=== PATIENT | female | born 1995 | race Hispanic/Latino ===

== ENCOUNTER 2018-01-13 21:40 | Emergency (ER) | payer SELFPAY ==
[2018-01-14] MEDS ORDERED: ULTRAM PO ONE (01:31)
[2018-01-14] MEDS ORDERED: TRIMOX PO ONE (01:31)
--- NOTE | 2018-01-14 01:36 | Emergency Department Report ---
ED ENT HPI - General Chief complaint: Dental/Oral Stated complaint: ABSCESS/MOUTH Time Seen by Provider: 01/14/18 01:23 Source: patient Mode of arrival: Ambulatory Limitations: No Limitations - History of Present Illness Initial comments: Patient presents for infected dental caries and dental pain 5/10 medial incisors there is mild gum swelling no facial swelling no fever no chills no throat or ear pain this acute exacerbation of a chronic problem for 3 years patient advises he does not have a dentist ? Referral to dental. MD complaint: tooth pain Onset/Timin -: days(s), unknown (hx same for past 2 years ) Location: tooth # (7,8,9) Severity: moderate Severity scale (0 -10): 3 Quality: aching, sharp Consistency: intermittent Improves with: none Worsens with: other (hot or cold stimuli ) Context- Dental: history of dental caries, poor dental care Associated Symptoms: gum swelling, toothache - Related Data Previous Rx's Medication Instructions Recorded Last Taken Type Amoxicillin [Trimox CAP] 500 mg PO ONCE #30 capsule 01/14/18 Unknown Rx Chlorhexidine Mouthwash [Peridex] 15 ml MM BID #1 bottle 01/14/18 Unknown Rx Ibuprofen 800 mg PO TID PRN #30 tablet 01/14/18 Unknown Rx Allergies Allergy/AdvReac Type Severity Reaction Status Date / Time No Known Allergies Allergy Verified 01/13/18 21:53 ED Dental HPI - General Chief complaint: Dental/Oral Stated complaint: ABSCESS/MOUTH Time Seen by Provider: 01/14/18 01:23 Source: patient Mode of arrival: Ambulatory Limitations: No Limitations - Related Data Previous Rx's Medication Instructions Recorded Last Taken Type Amoxicillin [Trimox CAP] 500 mg PO ONCE #30 capsule 01/14/18 Unknown Rx Chlorhexidine Mouthwash [Peridex] 15 ml MM BID #1 bottle 01/14/18 Unknown Rx Ibuprofen 800 mg PO TID PRN #30 tablet 01/14/18 Unknown Rx Allergies Allergy/AdvReac Type Severity Reaction Status Date / Time No Known Allergies Allergy Verified 01/13/18 21:53 ED Review of Systems ROS: Stated complaint: ABSCESS/MOUTH Other details as noted in HPI Constitutional: denies: chills, fever Eyes: denies: eye pain, eye discharge, vision change ENT: dental pain. denies: ear pain, throat pain, hearing loss, epistaxis, congestion Respiratory: denies: cough, shortness of breath, wheezing Cardiovascular: denies: chest pain, palpitations Endocrine: no symptoms reported Gastrointestinal: denies: abdominal pain, nausea, diarrhea Genitourinary: denies: urgency, dysuria, discharge Musculoskeletal: denies: back pain, joint swelling, arthralgia Skin: denies: rash, lesions Neurological: denies: headache, weakness, paresthesias Psychiatric: denies: anxiety, depression Hematological/Lymphatic: denies: easy bleeding, easy bruising ED Past Medical Hx - Past Medical History Hx Hypertension: Yes - Surgical History Past Surgical History?: Yes Additional Surgical History: tonsilectomy - Social History Smoking Status: Never Smoker Substance Use Type: None - Medications Home Medications: Home Medications Medication Instructions Recorded Confirmed Last Taken Type Amoxicillin [Trimox CAP] 500 mg PO ONCE #30 capsule 01/14/18 Unknown Rx Chlorhexidine Mouthwash [Peridex] 15 ml MM BID #1 bottle 01/14/18 Unknown Rx Ibuprofen 800 mg PO TID PRN #30 tablet 01/14/18 Unknown Rx ED Physical Exam - General Limitations: No Limitations General appearance: alert, in no apparent distress - Head Head exam: Present: atraumatic, normocephalic - Eye Eye exam: Present: normal appearance - ENT ENT exam: Present: normal orophraynx, mucous membranes moist, TM's normal bilaterally, normal external ear exam - Expanded ENT Exam Expanded Teeth exam: Present: dental caries, dental tenderness # (7,8,9), other ( multiple dental carries throughout ) Throat exam: Positive: normal inspection - Neck Neck exam: Present: normal inspection. Absent: tenderness, meningismus, full ROM, lymphadenopathy, thyromegaly - Respiratory Respiratory exam: Present: normal lung sounds bilaterally. Absent: respiratory distress, wheezes, rhonchi, chest wall tenderness - Cardiovascular Cardiovascular Exam: Present: regular rate, normal rhythm, normal heart sounds. Absent: systolic murmur, diastolic murmur, rubs, gallop - GI/Abdominal GI/Abdominal exam: Present: soft, normal bowel sounds. Absent: rebound, bruit, hernia - Rectal Rectal exam: Present: deferred - External exam: Present: normal external exam - Extremities Exam Extremities exam: Present: normal inspection - Back Exam Back exam: Present: normal inspection, full ROM. Absent: tenderness, CVA tenderness (R), CVA tenderness (L), muscle spasm, paraspinal tenderness, vertebral tenderness, rash noted - Neurological Exam Neurological exam: Present: alert, oriented X3, CN II-XII intact, normal gait, motor sensory deficit. Absent: abnormal gait - Psychiatric Psychiatric exam: Present: normal affect, normal mood - Skin Skin exam: Present: warm, dry, intact, normal color. Absent: rash ED Course Vital Signs 01/13/18 21:53 Temperature 98.9 F Pulse Rate 98 H Respiratory 16 Rate Blood Pressure 154/81 O2 Sat by Pulse 100 Oximetry ED Medical Decision Making - Medical Decision Making These are infected dental carry with no focal abscess plan amoxicillin ibuprofen. Peridex Follow with [facility] dental tomorrow patient verbalizes agreement and understanding same patient for DC'd to home in stable condition at this time patient is currently tolerating by mouth intake without issue there is no ear or throat pain patient is tolerating by mouth intake Critical care attestation.: If time is entered above; I have spent that time in minutes in the direct care of this critically ill patient, excluding procedure time. ED Disposition Clinical Impression: Infected dental carries Disposition: DC-01 TO HOME OR SELFCARE Is pt being admited?: No Does the pt Need Aspirin: No Condition: Good Instructions: Dental Caries (ED) Prescriptions: Amoxicillin [Trimox CAP] 500 mg PO ONCE #30 capsule Chlorhexidine Mouthwash [Peridex] 15 ml MM BID #1 bottle Ibuprofen 800 mg PO TID PRN #30 tablet PRN Reason: pain Referrals: PRIMARY CARE, [Primary Care Provider] - 3-5 Days Forms: Work/School Release Form(ED) Time of Disposition: 01:41
[2018-01-14 02:11] VITALS: BP 139/85
== END 2018-01-14 02:10 | disposition home or self-care (01) ==
LOC: ED 21:40
DX: K02.9 Dental caries, unspecified (principal); I10 Essential (primary) hypertension; Z90.89 Acquired absence of other organs
CPT/HCPCS: 99282

== ENCOUNTER 2020-08-04 19:42 | Emergency (ER) | payer SELFPAY ==
[2020-08-04 20:19] VITALS: BP 130/84
--- NOTE | 2020-08-04 21:33 | Emergency Department Report ---
ED General Adult HPI - General Chief complaint: Pain General Stated complaint: LT BREAST PAIN/SWOLLEN Time Seen by Provider: 08/04/20 21:08 Source: patient Mode of arrival: Ambulatory Limitations: No Limitations - History of Present Illness Initial comments: 24-year-old female patient with family history of breast cancer presents to the emergency department complaints of nontraumatic pain/redness/swelling of the left breast progressively worsening for 2 months. Patient has not taken any pain medicine or antibiotics. She is not breast-feeding. She has never been . Patient began noticing white drainage from the left nipple last week. Her mother was diagnosed with breast cancer in her 40s. Denies fever, chills, shortness of breath, nausea, vomiting. Denies all other complaints at this time. - Related Data Previous Rx's Medication Instructions Recorded Last Taken Type Amoxicillin [Trimox CAP] 500 mg PO ONCE #30 capsule 01/14/18 Unknown Rx Chlorhexidine Mouthwash [Peridex] 15 ml MM BID #1 bottle 01/14/18 Unknown Rx Ibuprofen 800 mg PO TID PRN #30 tablet 01/14/18 Unknown Rx Naproxen 500 mg PO BID #20 tablet 08/04/20 Unknown Rx cephALEXin [Keflex] 500 mg PO Q6HR 10 Days capsule 08/04/20 Unknown Rx Allergies Allergy/AdvReac Type Severity Reaction Status Date / Time No Known Allergies Allergy Verified 01/13/18 21:53 ED Review of Systems ROS: Stated complaint: LT BREAST PAIN/SWOLLEN Other details as noted in HPI Other: GENERAL: Negative for fever, chills, weight change, anorexia, fatigue. ENT: Negative for ear pain, difficulty hearing, sore throat, nasal congestion, epistaxis. CARDIOVASCULAR: Negative for chest pain, palpitations, lower extremity swelling. PULMONARY: Negative for cough, dyspnea, wheezing, orthopnea, cyanosis. GASTROINTESTINAL: Negative for abdominal pain, nausea, vomiting, diarrhea, constipation. MUSCULOSKELETAL: Negative for joint pain, joint swelling, myalgias, back pain, neck pain. NEUROLOGICAL: Negative for headache, seizure, syncope, paresthesias, weakness. INTEGUMENTARY: Positive for erythema/swelling/drainage. HEMATOLOGICAL: Negative for hemoptysis, hematemesis, hematochezia, hematuria. PSYCHIATRIC: Negative for hallucinations, suicidal ideation, homicidal ideation, anxiety, depression. ED Past Medical Hx - Past Medical History Previous Medical History?: Yes Hx Hypertension: Yes - Surgical History Past Surgical History?: Yes Additional Surgical History: tonsilectomy - Social History Smoking Status: Never Smoker Substance Use Type: None - Medications Home Medications: Home Medications Medication Instructions Recorded Confirmed Last Taken Type Amoxicillin [Trimox CAP] 500 mg PO ONCE #30 capsule 01/14/18 Unknown Rx Chlorhexidine Mouthwash [Peridex] 15 ml MM BID #1 bottle 01/14/18 Unknown Rx Ibuprofen 800 mg PO TID PRN #30 tablet 01/14/18 Unknown Rx Naproxen 500 mg PO BID #20 tablet 08/04/20 Unknown Rx cephALEXin [Keflex] 500 mg PO Q6HR 10 Days capsule 08/04/20 Unknown Rx ED Physical Exam - General Limitations: No Limitations - Other Other exam information: General: Awake, appropriately interactive, no acute distress. Neck: Supple. Full range of motion intact. Cardiovascular: Normal peripheral perfusion. Pulmonary: No respiratory distress. Patient is speaking normally without use of accessory muscles. 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 Left breast is significantly edematous as compared with the right. Both nipples are inverted (pt states this is consistent with her baseline); a small amount of white drainage was expressed from the left nipple. Diffuse erythema throughout the inferior portion of the breast with overlying warmth. No fluctuance. No necrosis. No crepitus. No regional lymphadenopathy. Skin: No apparent rashes or lesions. Neurological: No facial asymmetry. Speech is clear. Follows commands. Patient is alert and oriented. Musculoskeletal: Moves all four extremities spontaneously with normal range of motion. Psych: Cooperative. Appropriate mood and affect. ED Course Vital Signs 08/04/20 20:15 Temperature 99.6 F Pulse Rate 92 H Respiratory 20 Rate Blood Pressure 130/84 O2 Sat by Pulse 100 Oximetry ED Medical Decision Making - Medical Decision Making Differential diagnosis including but not limited to: mastitis, cellulitis, necrotizing soft tissue infection, abscess, prolactinoma, malignancy Patient presents emergency department with complaints of progressively worsening left breast pain/swelling/redness with associated nipple drainage. This is her first evaluation for this problem since it began 2 months ago. Patient is not breast-feeding. She is afebrile, hemodynamically stable, no respiratory distress. Patient will be treated empirically for mastitis although underlying malignancy cannot be excluded. Patient will be referred to local breast specialist for close outpatient follow-up. Emphasized the importance of calling tomorrow to schedule an appointment this week. Patient expressed understanding and is agreeable to plan of care. Strict return precautions provided. History, exam, diagnostic testing, and current condition do not suggest worrisome pathology to warrant further testing, continued ED treatment, admission, or surgical evaluation at this point. Given the low probability of a significant medical illness, it would be more likely to result in harm than benefit to perform further testing at this stage. Discussed findings, presumptive diagnosis, need for follow-up and specific signs/symptoms that should prompt immediate return to the emergency department. Instructions were explained in detail to the patient in addition to giving written discharge information. Patient expressed understanding and was given the opportunity to ask questions, all of which were satisfactorily answered prior to discharge home. Critical care attestation.: If time is entered above; I have spent that time in minutes in the direct care of this critically ill patient, excluding procedure time. ED Disposition Clinical Impression: Breast erythema Disposition: DC- TO HOME OR SELFCARE Is pt being admited?: No Does the pt Need Aspirin: No Condition: Stable Instructions: Mastitis, [id number] Additional Instructions: Take Tylenol every 4 hours as needed for pain. Take Naprosyn twice daily with food as needed for pain. Take Keflex with food as directed. Increase your dietary intake of probiotic rich foods while taking this medication. Apply warm compresses to the affected area as needed. Wear sports bra for adequate breast support to reduce discomfort. Follow-up with Dr. Michel, breast specialist, this week. Call tomorrow to schedule an appointment. Return to the emergency department immediately for new or worsening symptoms. Specifically, return to the emergency department immediately for fever, increased pain, worsening redness/swelling, vomiting, rash, or any other conc erns. Prescriptions: cephALEXin [Keflex] 500 mg PO Q6HR 10 Days capsule Naproxen 500 mg PO BID #20 tablet Referrals: RUBÉN SEWELL MD [Staff Physician] - 3-5 Days Forms: Work/School Release Form(ED) Time of Disposition: 21:42
== END 2020-08-04 22:02 | disposition home or self-care (01) ==
LOC: ED 19:42
DX: L53.9 Erythematous condition, unspecified (principal); I10 Essential (primary) hypertension; Z79.899 Other long term (current) drug therapy; Z90.49 Acquired absence of other specified parts of digestive tract
CPT/HCPCS: 99281

== ENCOUNTER 2020-08-08 20:57 | Emergency (ER) | payer SELFPAY ==
--- NOTE | 2020-08-09 03:31 | Emergency Department Report ---
ED General Adult HPI - General Chief complaint: Urogenital-Female Stated complaint: LEFT BREAST PAIN PUI?: No Time Seen by Provider: 08/09/20 03:10 Source: patient, EMS Mode of arrival: Ambulatory Limitations: No Limitations - History of Present Illness Initial comments: Patient is a 24-year-old female that presents emergency room with complaints of left breast pain. Patient states states is going on for 2 months but has been getting worse since she was seen here on the second. Patient states she was seen here on August 05, 2019 when given naproxen and Keflex. Patient states that the pain is worsening. Patient states the pain is a 10 out of 10. Patient dates the pain is better with rest but worse with palpation and movement. Patient states she has not seen a primary care or a specialist for this. Patient states she is taking her medications. Patient denies recent travel. Patient denies recent international travel. Patient denies exposure to the novel coronavirus. Patient denies sick contacts. Patient denies fever and chills. Patient denies cough. Patient denies diarrhea. Patient denies coming in contact with anybody with symptoms of the novel coronavirus. -: Sudden Severity scale (0 -10): 10 Quality: stabbing Consistency: constant Improves with: rest Worsens with: movement Associated Symptoms: denies other symptoms. denies: confusion, chest pain, cough, diaphoresis, fever/chills, headaches, loss of appetite, malaise, nausea/vomiting, rash, seizure, shortness of breath, syncope, weakness Treatments Prior to Arrival: NSAID, other (Prescription antibiotics) - Related Data Previous Rx's Medication Instructions Recorded Last Taken Type Amoxicillin [Trimox CAP] 500 mg PO ONCE #30 capsule 01/14/18 Unknown Rx Chlorhexidine Mouthwash [Peridex] 15 ml MM BID #1 bottle 01/14/18 Unknown Rx Ibuprofen 800 mg PO TID PRN #30 tablet 01/14/18 Unknown Rx Naproxen 500 mg PO BID #20 tablet 08/04/20 Unknown Rx cephALEXin [Keflex] 500 mg PO Q6HR 10 Days capsule 08/04/20 Unknown Rx HYDROcodone/APAP 7.5-325 [Huger 1 each PO Q6HR PRN #12 tablet 08/09/20 Unknown Rx 7.5/325] Sulfamethoxazole/Trimethoprim 1 each PO BID 10 Days #20 tablet 08/09/20 Unknown Rx [Bactrim DS TAB] Allergies Allergy/AdvReac Type Severity Reaction Status Date / Time No Known Allergies Allergy Verified 01/13/18 21:53 ED Review of Systems ROS: Stated complaint: LEFT BREAST PAIN Other details as noted in HPI Constitutional: denies: chills, fever Eyes: denies: eye pain, eye discharge, vision change ENT: denies: ear pain, throat pain Respiratory: denies: cough, shortness of breath, wheezing Cardiovascular: denies: chest pain, palpitations Endocrine: no symptoms reported Gastrointestinal: denies: abdominal pain, nausea, diarrhea Genitourinary: denies: urgency, dysuria, discharge Musculoskeletal: denies: back pain, joint swelling, arthralgia Skin: as per HPI, change in color. denies: rash, lesions Neurological: denies: headache, weakness, paresthesias Psychiatric: denies: anxiety, depression Hematological/Lymphatic: denies: easy bleeding, easy bruising ED Past Medical Hx - Past Medical History Previous Medical History?: Yes Hx Hypertension: Yes - Surgical History Past Surgical History?: Yes Additional Surgical History: tonsilectomy, Adenoids - Family History Family history: no significant - Social History Smoking Status: Current Every Day Smoker Substance Use Type: Marijuana - Medications Home Medications: Home Medications Medication Instructions Recorded Confirmed Last Taken Type Amoxicillin [Trimox CAP] 500 mg PO ONCE #30 capsule 01/14/18 Unknown Rx Chlorhexidine Mouthwash [Peridex] 15 ml MM BID #1 bottle 01/14/18 Unknown Rx Ibuprofen 800 mg PO TID PRN #30 tablet 01/14/18 Unknown Rx Naproxen 500 mg PO BID #20 tablet 08/04/20 Unknown Rx cephALEXin [Keflex] 500 mg PO Q6HR 10 Days capsule 08/04/20 Unknown Rx HYDROcodone/APAP 7.5-325 [Huger 1 each PO Q6HR PRN #12 tablet 08/09/20 Unknown Rx 7.5/325] Sulfamethoxazole/Trimethoprim 1 each PO BID 10 Days #20 tablet 08/09/20 Unknown Rx [Bactrim DS TAB] ED Physical Exam - General Limitations: No Limitations General appearance: alert, in no apparent distress - Head Head exam: Present: atraumatic, normocephalic - Eye Eye exam: Present: normal appearance - ENT ENT exam: Present: mucous membranes moist - Neck Neck exam: Present: normal inspection - Respiratory Respiratory exam: Present: normal lung sounds bilaterally. Absent: respiratory distress - Cardiovascular Cardiovascular Exam: Present: regular rate, normal rhythm. Absent: systolic murmur, diastolic murmur, rubs, gallop - GI/Abdominal GI/Abdominal exam: Present: soft, normal bowel sounds - Extremities Exam Extremities exam: Present: normal inspection - Back Exam Back exam: Present: normal inspection - Neurological Exam Neurological exam: Present: alert, oriented X3 - Psychiatric Psychiatric exam: Present: normal affect, normal mood - Skin Skin exam: Present: warm, dry, intact, normal color, erythema (Left breast erythema. No abscess noted. Site is nonfluctuant. Site is tender to palpation.), other (the NurseRosalia in the room during the entire exam.). Absent: rash ED Course Vital Signs 08/08/20 22:02 Temperature 98.5 F Pulse Rate 86 Respiratory 16 Rate Blood Pressure 134/80 O2 Sat by Pulse 100 Oximetry - Reevaluation(s) Reevaluation #1: I discussed all results and clinical findings with patient. I discussed plan of care with patient. Patient agrees with plan of care. Patient is stable for discharge. Patient will be discharged home. Patient given discharge instructions. Patient voiced understanding of discharge instructions. 08/09/20 03:45 ED Medical Decision Making - Medical Decision Making Patient is a 24-year-old female presents emergency room with worsening left breast pain. Patient was seen here August 05, 2019 for mastitis. Patient was given Keflex and Naprosyn. I will add Bactrim DS to the antibiotic regimen. Patient instructed to follow-up with a breast specialist and [employer] within 2 to 3 days. Patient to also see her primary care in 2 to 3 days. Patient is afebrile and tolerating p.o. intake. Patient given Huger 5 in the ER. Patient will be given a prescription for Huger as well. Patient stable for discharge. Patient discharged home. Patient does not require further emergency medical or inpatient services.. - Differential Diagnosis Breast pain, mastitis, Critical care attestation.: If time is entered above; I have spent that time in minutes in the direct care of this critically ill patient, excluding procedure time. ED Disposition Clinical Impression: Breast erythema, Mastitis Disposition: - TO HOME OR SELFCARE Is pt being admited?: No Does the pt Need Aspirin: No Condition: Stable Instructions: Mastitis, [id number] Additional Instructions: Patient to follow-up with primary care in 2 to 3 days. Patient to follow-up with [employer] [employer] [facility] and breast specialist in 2 to 3 days. Patient to rest. Patient to increase water. Patient to avoid strenuous exercise or heavy lifting until cleared by [employer]. Patient to take Tylenol or ibuprofen as needed for pain. Patient to take meds as directed. Patient to return to the ER if condition worsens, changes or new symptoms arise. Prescriptions: Sulfamethoxazole/Trimethoprim [Bactrim DS TAB] 1 each PO BID 10 Days #20 tablet HYDROcodone/APAP 7.5-325 [Huger 7.5/325] 1 each PO Q6HR PRN #12 tablet PRN Reason: Pain Referrals: PRIMARY CARE, [Primary Care Provider] - 2-3 Days JACK REED MD [Staff Physician] - 2-3 Days RUBÉN SEWELL MD [Staff Physician] - 2-3 Days Time of Disposition: 03:47
== END 2020-08-09 04:15 | disposition home or self-care (01) ==
LOC: ED 20:57